=== PATIENT | female | born 2000 | race Caucasian/White ===

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

== ENCOUNTER 2022-04-28 18:47 | Emergency (ER) | payer OTHER ==
[~2022-04-28] VITALS: Ht 152.4 cm; Wt 63.5 kg
[2022-04-28 19:33] VITALS: BP 123/72
--- NOTE | 2022-04-28 19:53 | NUR ---
TO LOBBY FOLLOWING TRIAGE, AFTER OBTAINING UA
[2022-04-28] MEDS ORDERED: NACL 0.9% 1,000 ML IV SCH (22:40)
[2022-04-28] MEDS ORDERED: ONDANSETRON 4 MG/2 ML VIAL IVP ONE (22:40)
[2022-04-28] MEDS ORDERED: MORPHINE SULFATE 4 MG/ML SYR IVP ONE (22:40)
--- NOTE | 2022-04-28 22:41 | NUR ---
Patient taken to bed 6.
--- NOTE | 2022-04-28 23:00 | NUR ---
21 Y/O F presents with abdominal pain 11/24 from c section site xyesterday morning. pt stated she has nausea and back pain with chills. pt stated she took ibuprofen with no relief. pt is a&ox4, skin intact. PMH-kidney infection, kidney stones, C section NKA
[2022-04-28 23:11] LABS: BASOPHILS % (AUTO) 0.2 % (0.0-2.0); EOSINOPHILS % (AUTO) 0.4 % (0.0-4.0); HEMOGLOBIN 11.9 g/dL (12.0-16.0); LYMPHOCYTES # (AUTO) 1.2 K/uL (2.5-16.5); LYMPHOCYTES % (AUTO) 12.4 % (20.5-51.1); MEAN CORPUSCULAR HEMOGLOBIN 24 pg (27-31); MEAN CORPUSCULAR HGB CONC 33 g/dL (33-37); MEAN CORPUSCULAR VOLUME 71.6 fL (80-94); MONOCYTES # (AUTO) 0.5 K/uL (0.8-1.0); MONOCYTES % (AUTO) 5.6 % (1.7-9.3); NEUTROPHILS # (AUTO) 7.7 K/uL (1.8-7.7); NEUTROPHILS % (AUTO) 81.4 % (42.2-75.2); PLATELET COUNT (AUTO) 302 K/uL (140-450); RED BLOOD CELL COUNT(AUTO) 5.03 MIL/uL (4.20-5.40); RED CELL DISTRIBUTION WIDTH 16.9 % (11.6-13.7); WHITE BLOOD COUNT (AUTO) 9.4 K/uL (4.5-11.0)
[2022-04-28 23:24] LABS: ALBUMIN 4.4 g/dL (3.4-5.0); ANION GAP 10.6 (8-16); CARBON DIOXIDE 28.8 mmol/L (21-32); CREATININE 0.7 mg/dL (0.6-1.3); POTASSIUM 3.4 mmol/L (3.5-5.1)
--- NOTE | 2022-04-28 23:34 | NUR ---
PT TAKEN TO CT
[2022-04-28 23:44] LABS: TOTAL BILIRUBIN 0.5 mg/dL (0.0-1.0)
--- NOTE | 2022-04-28 23:45 | NUR ---
pt reruned from ct and on court monitor
[2022-04-29] MEDS ORDERED: ONDANSETRON 4 MG/2 ML VIAL IVP ONE (00:25)
[2022-04-29] MEDS ORDERED: MORPHINE SULFATE 4 MG/ML SYR IVP ONE (00:25)
[2022-04-29 00:29] LABS: APPEARANCE,URINE CLEAR (CLEAR); BILIRUBIN,URINE NEGATIVE (NEGATIVE); BLOOD, URINE NEGATIVE (NEGATIVE); COLOR,URINE YELLOW (YELLOW); LEUKOCYTE ESTERASE ,URINE 1+ (NEGATIVE); NITRITE, URINE NEGATIVE (NEGATIVE); UGLUCOSE NEGATIVE (NEGATIVE)
[2022-04-29 00:38] LABS: RBC,URINE 0-5 /HPF (0-5)
[2022-04-29 00:39] LABS: YEAST,URINE Few /HPF (None Seen)
--- NOTE | 2022-04-29 01:09 | NUR ---
Ultrasound at bedside.
[2022-04-29 01:15] VITALS: BP 101/60
[2022-04-29] MEDS ORDERED: cefTRIAXone 1,000 MG VIAL ONE (01:36)
[2022-04-29] MEDS ORDERED: PHENAZOPYRIDINE 100 MG TAB PO ONE (01:40)
[2022-04-29] MEDS ORDERED: LORazepam 0.5 MG TAB PO ONE (01:40)
[2022-04-29] MEDS ORDERED: FLUCONAZOLE 100 MG TAB PO ONE (02:30)
[2022-04-29] MEDS ORDERED: PHEN-1877 PO ×3 (02:31→03:02)
[2022-04-29] MEDS ORDERED: NAPR-1704 PO ×3 (02:31→03:02)
[2022-04-29] MEDS ORDERED: ACET-10509 PO ×3 (02:31→03:02)
[2022-04-29] MEDS ORDERED: CEPH-588 PO ×3 (02:31→03:02)
[2022-04-29] MEDS ORDERED: ACET-5634 PO ×3 (02:31→03:02)
--- NOTE | 2022-04-29 02:54 | NUR ---
Patient discharged with v/s stable. Written and verbal after care instructions given and explained. Patient alert, oriented and verbalized understanding of instructions. Ambulatory with steady gait. All questions addressed prior to discharge. ID band removed. Patient advised to follow up with PMD. Rx of acetaminophen tab, oxycodone hci, cephalexin, napoxen, phenazopyridine given. Opportunity to ask questions provided and answered.
--- NOTE | 2022-04-29 02:55 | NUR ---
The patient's care was reviewed and supervised by Brooke Copeland RN.
== END 2022-04-29 02:54 | disposition home or self-care (01) ==
LOC: MED 18:47
DX: N12 Tubulo-interstitial nephritis, not specified as acute or chronic (principal); E87.6 Hypokalemia; B37.31 Acute candidiasis of vulva and vagina; Z98.890 Other specified postprocedural states; Z79.899 Other long term (current) drug therapy; Z79.2 Long term (current) use of antibiotics; Z79.891 Long term (current) use of opiate analgesic
CPT/HCPCS: 36415; 74176; 76856; 80053; 81001; 81025; 83605; 85025; 87040; 87086; 93976; 96361; 96365; 96375; 96376; 99285; J0696; J2270; J2405; J7030; Q0092

== ENCOUNTER 2022-10-20 17:06 | Emergency (ER) | payer OTHER ==
[~2022-10-20] VITALS: Ht 152.4 cm; Wt 63.5 kg
[~2022-10-20 17:06] MED LIST changes: +ACET-10509 PO; -ACET-1182 PO; +ACET-5634 PO; -ACET-9525 PO; -AMOX-1000 PO; -BISA5TAB79 PO; +CEPH-588 PO; -DOCU-299 PO; +NAPR-1704 PO; +PHEN-1877 PO
[2022-10-20 17:36] VITALS: BP 132/69; PULSE 119; RESP 20; TEMP 100.3; O2SAT 100
[2022-10-20] MEDS ORDERED: KETOROLAC 30 MG/ML VIAL IVP ONE (17:50)
[2022-10-20] MEDS ORDERED: NACL 0.9% 1,000 ML IV SCH (17:50)
[2022-10-20 18:15] VITALS: O2SAT 98
[2022-10-20 18:32] LABS: BILIRUBIN,URINE NEGATIVE (NEGATIVE); BLOOD, URINE 3+ (NEGATIVE); COLOR,URINE YELLOW (YELLOW); LEUKOCYTE ESTERASE ,URINE 1+ (NEGATIVE); NITRITE, URINE NEGATIVE (NEGATIVE); PROTEIN,URINE 1+ (NEGATIVE); UGLUCOSE NEGATIVE (NEGATIVE); UROBILINOGEN,URINE 0.2 EU/dL (0.2 - 1)
[2022-10-20 18:35] LABS: APPEARANCE,URINE HAZY (CLEAR)
[2022-10-20 18:42] LABS: BACTERIA,URINE 10-30 (MOD) /HPF (None Seen); SQUAMOUS EPITHELIAL CELL,UR 4-10 (MOD) /LPF (0-3 (FEW)); WBC,URINE 0-5 /HPF (0-5)
[2022-10-20 19:01] LABS: BASOPHILS % (AUTO) 0.2 % (0.0-2.0); EOSINOPHILS % (AUTO) 0.1 % (0.0-4.0); HEMOGLOBIN 11.5 g/dL (12.0-16.0); LYMPHOCYTES # (AUTO) 0.8 K/uL (2.5-16.5); MEAN CORPUSCULAR HEMOGLOBIN 25 pg (27-31); MEAN CORPUSCULAR HGB CONC 34 g/dL (33-37); MEAN CORPUSCULAR VOLUME 75.1 fL (80-94); MONOCYTES # (AUTO) 0.4 K/uL (0.8-1.0); MONOCYTES % (AUTO) 4.1 % (1.7-9.3); NEUTROPHILS # (AUTO) 8.3 K/uL (1.8-7.7); NEUTROPHILS % (AUTO) 87.6 % (42.2-75.2); PLATELET COUNT (AUTO) 312 K/uL (140-450); RED BLOOD CELL COUNT(AUTO) 4.53 MIL/uL (4.20-5.40); RED CELL DISTRIBUTION WIDTH 16.8 % (11.6-13.7); WHITE BLOOD COUNT (AUTO) 9.5 K/uL (4.5-11.0)
[2022-10-20] MEDS ORDERED: ACETAMINOPHEN EXTRA STRENGTH 500 MG TAB PO ONE (19:15)
[2022-10-20] MEDS ORDERED: MORPHINE SULFATE 4 MG/ML SYR IV ONE (19:15)
[2022-10-20 19:29] LABS: INR 0.96 (0.8-1.2); PARTIAL THROMBOPLASTIN TIME 26.3 secs (22-35.6); PROTHROMBIN TIME 10.1 secs (10.8-13.4)
[2022-10-20 19:30] LABS: ALBUMIN 4.4 g/dL (3.4-5.0); ANION GAP 14.9 (8-16); CALCIUM 8.6 mg/dL (8.5-10.1); CARBON DIOXIDE 25.4 mmol/L (21-32); CREATININE 0.7 mg/dL (0.6-1.3); POTASSIUM 3.3 mmol/L (3.5-5.1); TOTAL BILIRUBIN 0.7 mg/dL (0.0-1.0); TOTAL PROTEIN, SERUM 8.3 g/dL (6.4-8.2)
[2022-10-20 19:35] LABS: LACTIC ACID 0.6 mmol/L (0.4-2.0)
[2022-10-20] MEDS ORDERED: PHEN-1877 PO (21:07)
[2022-10-20] MEDS ORDERED: CEPH-588 PO (21:07)
[2022-10-20] MEDS ORDERED: ACET-8905 PO (21:07)
[2022-10-20] MEDS ORDERED: ACET-2619 PO (21:07)
[2022-10-20 21:24] VITALS: BP 112/70; PULSE 65; RESP 20; TEMP 98.8; O2SAT 98
== END 2022-10-20 21:24 | disposition home or self-care (01) ==
LOC: MED 17:06
DX: O23.01 Infections of kidney in pregnancy, first trimester (principal); Z3A.01 Less than 8 weeks gestation of pregnancy; Z79.899 Other long term (current) drug therapy
CPT/HCPCS: 36415; 74177; 80053; 81001; 81025; 83605; 85025; 85610; 85730; 87040; 87086; 96361; 96374; 96375; 99285; J1885; J2270; J7030; Q9967

== ENCOUNTER 2023-01-02 08:06 | Emergency (ER) | payer OTHER ==
[~2023-01-02] VITALS: Ht 152.4 cm; Wt 67.4 kg
[~2023-01-02 08:06] MED LIST changes: +ACET-2619 PO; +ACET-8905 PO
[2023-01-02 08:40] VITALS: BP 109/57; PULSE 100; RESP 20; TEMP 98.8; O2SAT 97
[2023-01-02] MEDS ORDERED: methocarbamoL 500 MG TAB PO STA (09:43)
[2023-01-02] MEDS ORDERED: ACETAMINOPHEN 325 MG TAB PO ONE (09:45)
[2023-01-02] MEDS ORDERED: LIDOCAINE 4% PATCH 1 EA PATCH TP ONE (09:45)
[2023-01-02] MEDS ORDERED: KETOROLAC 30 MG/ML VIAL IM ONE (09:45)
[2023-01-02] MEDS ORDERED: IBUP-2213 PO (10:41)
[2023-01-02] MEDS ORDERED: METH-1681 PO (10:41)
[2023-01-02] MEDS ORDERED: LID5T TP (10:41)
[2023-01-02 10:47] VITALS: BP 109/57; PULSE 100; RESP 20; TEMP 98.8; O2SAT 97
== END 2023-01-02 10:47 | disposition home or self-care (01) ==
LOC: MED 08:06
DX: M54.50 Low back pain, unspecified (principal); Z79.899 Other long term (current) drug therapy
CPT/HCPCS: 81025; 96372; 99283; J1885